=== PATIENT | male | born 1985 | race Caucasian/White ===

== ENCOUNTER 2022-09-05 13:16 | Emergency (ER) | payer MEDICAID ==
[~2022-09-05] VITALS: Ht 165.1 cm; Wt 73.0 kg
[2022-09-05 14:03] LABS: BASOPHILS % 2.7 % (0.0-2.0); EOSINOPHILS % 0.2 % (0.0-5.0); HEMATOCRIT. 32.3 % (42.0-52.0); HEMOGLOBIN. 11.5 g/dL (14.0-18.0); LYMPHOCYTES % 10.5 % (20.0-50.0); MEAN CORPUSCULAR HEMOGLOBIN 33.6 pg (28.0-32.0); MEAN CORPUSCULAR VOLUME 94.5 fL (80.0-94.0); MEAN PLATELET VOLUME 7.2 fl (7.4-10.4); NEUTROPHILS % 73.6 % (40.0-76.0); PLATELET 109 x1000/uL (130-400); RED BLOOD CELL COUNT 3.42 mill/uL (4.7-6.1); RED CELL DISTRIBUTION WIDTH 16.1 % (11.6-14.6)
[2022-09-05 14:10] LABS: CHLORIDE 90 mEq/L (98-107)
[2022-09-05 14:20] LABS: ETHANOL BLOOD < 10 mg/dL (-10)
[2022-09-05 18:34] VITALS: BP 132/80
== END 2022-09-05 18:40 | disposition home or self-care (01) ==
LOC: ER 13:16
DX: R07.89 Other chest pain (principal)
CPT/HCPCS: 36415; 71045; 80053; 80320; 83880; 84484; 85025; 93005; 99285; G0480